=== PATIENT | female | born 2000 | race Two or more races ===

== ENCOUNTER 2025-05-23 11:17 | Observation (INO) | payer MEDICAID, SELFPAY ==
[2025-05-23] VITALS (10 sets, daily range): BP systolic 115; BP diastolic 63; PULSE 83–96; RESP 18–98; TEMP 36.9; O2SAT 97–99; BMI 27.6
--- NOTE | 2025-05-23 12:15 | P.TNLD_ITS ---
Documentation for date of: 05/23/25 Hx History Provider: Florentino Bowles Attending Provider: Florentino Bowles : 2 Para: 1 Term: 1 : 0 Number of Living Children: 1 Abortions: Spontaneous & Elective: 0 # of Vaginal Deliveries:: 0 Hx Section: Yes Hx Vaginal Delivery Post : No Gestation Info Final GISEL: 06/20/25 Gestational Age (weeks): 36 Gestational Age (days): 0 Complaint Complaint Complaint: contractions every 30 mins to one hour, lost mucous plug . BACK PAIN. NO BLEEDING. NO DYSURIA. EXAM: MILD MUSCLE SPASM LUMBAL REGION. 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 REYES Vaginal Bleeding Vaginal Bleeding Amount: None Heart Monitoring Heart Rate Assessment Variability: Moderate Monitor Decelerations: None FHR Pattern Category: Category l Movement Reported: Yes NST Reactive: Yes RN Notes Notes LD Triage Comment: pt presented to labor and delivery for co ctx she states every 30 mins to one hour, pt stated this to her provider and her provider sent her to ob, pt denies bleeding or leaking reports that she lost her mucous plug yesterday, pt states when she does have ctx she rates them 2/10, reports pos movement abd palpates soft efm applied x2.
== END 2025-05-23 12:20 | disposition home or self-care (01) ==
PROVIDERS: Admitting Provider Obstetrics & Gynecology; Visit Provider Obstetrics & Gynecology
DX: O47.03 False labor before 37 completed weeks of gestation, third trimester (principal); Z3A.36 36 weeks gestation of pregnancy
CPT/HCPCS: 59025; 59899

== ENCOUNTER 2025-06-06 15:55 | Outpatient (CLI) | payer MEDICAID, SELFPAY ==
[2025-06-06] VITALS (14 sets, daily range): BP systolic 121; BP diastolic 59; PULSE 80–94; RESP 20–98; TEMP 36.8; O2SAT 98–99; BMI 28.3
--- NOTE | 2025-06-06 16:46 | XR_ITS ---
Examination: Biophysical profile, ultrasound Date and time of exam: June 06, 2025 1656 hours INDICATIONS: Decreased movement beginning 3 days ago Technique: Multiple transabdominal sonographic images of the pelvis abdomen obtained. Attention is directed to the breathing movement, gross body movement, amniotic fluid volume and tone. Findings: Amniotic fluid index 6.6 cm Total biophysical profile is 8 of 8. breathing movement is 2. Gross body movement is 2. tone is 2. Qualitative amniotic fluid volume is 2 Impression: Biophysical profile is 8 of 8.
== END 2025-06-06 17:30 | disposition home or self-care (01) ==
LOC: S4S1 15:56 → S4SX 15:57
PROVIDERS: Referring Provider Student in an Organized Health Care Education/Training Program; Visit Provider Student in an Organized Health Care Education/Training Program
DX: Z34.83 Encounter for supervision of other normal pregnancy, third trimester (principal); Z36.9 Encounter for antenatal screening, unspecified; Z3A.38 38 weeks gestation of pregnancy
CPT/HCPCS: 59025; 76819